=== PATIENT | female | born 1970 | race Caucasian/White ===

== ENCOUNTER 2016-07-05 13:11 | Emergency (ER) | payer OTHER ==
[~2016-07-05] VITALS: Ht 170.2 cm; Wt 80.0 kg
[2016-07-05 13:13] VITALS: BP 146/80; PULSE 78; RESP 20; TEMP 98; O2SAT 96
[2016-07-05] MEDS ORDERED: SODIUM CHLORIDE 0.9% FLUSH 5 ML FLUSH IVF PRN (14:15)
[2016-07-05] MEDS ORDERED: KETOROLAC TROMETHAMINE 30 MG/ML (IVP) VIAL IV PUSH ONE (14:15)
--- NOTE | 2016-07-05 14:20 | PD ---
HPI Chief Complaint: Chest Pain Time Seen by Provider: 13:48 Travel History International Travel<30 days: No Contact w/Intl Traveler<30days: No Traveled to known affect area: No History of Present Illness HPI Patient is a 45-year-old female presents with acute on chronic left upper quadrant abdominal pain. Patient states she's had a stent placed in her esophagus and she's been having pain in her epigastric and left flank pain for over a year. Patient states he got fairly severe last night and decided to come in and be seen. 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 Patient denies any nausea vomiting or shortness of breath. Patient states she's never had a heart attack before. PFSH Past Medical History Anemia: Yes Blood Disorders: No Depression: Yes Cancer: Yes (LUNG NODULES DX 2012) Cardiovascular Problems: Yes (HTN, ON NORVASC) Chemotherapy: Yes COPD: Yes Cerebrovascular Accident: Yes (TIA ) Diminished Hearing: No Endocrine: No Genitourinary: No Hepatitis: Yes (C) Hypertension: Yes Immune Disorder: No Neurologic: Yes (Migraines ) Psychiatric: Yes Reproductive: No Respiratory: Yes (COPD) Pneumonia: Yes Seizures: Yes ?: Not : 4 Para: 4 Past Surgical History Appendectomy: Yes Cholecystectomy: Yes Gynecologic Surgery: Yes (BLADDER LIFT) Hysterectomy: Yes Other Surgery: Yes (FACE SURGERY-BILAT) Social History Alcohol Use: No Tobacco Use: Yes (2 PPD ) Substance Use: Yes (MARIJUANA) Allergies-Medications (Allergen,Severity, Reaction): Coded Allergies: Morphine (Verified Allergy, Severe, swelling, 07/05/16) Sulfa (Verified Allergy, Severe, swelling, 07/05/16) Reported Meds & Prescriptions Reported Meds & Active Scripts Active No Active Prescriptions or Reported Medications Review of Systems Except as stated in HPI: all other systems reviewed are Neg Physical Exam Narrative GENERAL: Well-developed well-nourished appears older than stated age in no apparent distress. SKIN: Warm and dry. HEAD: Atraumatic. Normocephalic. EYES: Pupils equal and round. No scleral icterus. No injection or drainage. ENT: No nasal bleeding or discharge. Mucous membranes pink and moist. NECK: Trachea midline. No JVD. CARDIOVASCULAR: Regular rate and rhythm. No murmur appreciated. RESPIRATORY: No accessory muscle use. Clear to auscultation. Breath sounds equal bilaterally. GASTROINTESTINAL: Abdomen soft, non-tender, nondistended. Hepatic and splenic margins not palpable. MUSCULOSKELETAL: No obvious deformities. No clubbing. No cyanosis. No edema. NEUROLOGICAL: Awake and alert. No obvious cranial nerve deficits. Motor grossly within normal limits. Normal speech. PSYCHIATRIC: Appropriate mood and affect; insight and judgment normal. Data Data Last Documented VS Vital Signs Date Time Temp Pulse Resp B/P Pulse Ox O2 Delivery O2 Flow Rate FiO2 07/05/16 15:36 20 07/05/16 14:44 97 Room Air 07/05/16 14:44 56 138/77 07/05/16 13:13 98.0 Orders Complete Blood Count With Diff (07/05/16 14:02) Comprehensive Metabolic Panel (07/05/16 14:02) Lipase (07/05/16 14:02) Lactic Acid (07/05/16 14:02) Prothrombin Time / Inr (Pt) (07/05/16 14:02) Act Partial Throm Time (Ptt) (07/05/16 14:02) Iv Access Insert/Monitor (07/05/16 14:02) Ecg Monitoring (07/05/16 14:02) Oximetry (07/05/16 14:02) Sodium Chloride 0.9% Flush (Ns Flush) (07/05/16 14:15) Electrocardiogram (07/05/16 14:02) Troponin I (07/05/16 14:02) Ketorolac Inj (Toradol Inj) (07/05/16 14:15) Tramadol (Ultram) (07/05/16 15:45) Labs Laboratory Tests Test 07/05/16 14:10 White Blood Count 10.1 TH/MM3 Red Blood Count 4.58 MIL/MM3 Hemoglobin 13.4 GM/DL Hematocrit 39.9 % Mean Corpuscular Volume 87.1 FL Mean Corpuscular Hemoglobin 29.2 PG Mean Corpuscular Hemoglobin 33.6 % Concent Red Cell Distribution Width 14.3 % Platelet Count 278 TH/MM3 Mean Platelet Volume 10.2 FL Neutrophils (%) (Auto) 68.6 % Lymphocytes (%) (Auto) 22.7 % Monocytes (%) (Auto) 7.0 % Eosinophils (%) (Auto) 1.2 % Basophils (%) (Auto) 0.5 % Neutrophils # (Auto) 6.9 TH/MM3 Lymphocytes # (Auto) 2.3 TH/MM3 Monocytes # (Auto) 0.7 TH/MM3 Eosinophils # (Auto) 0.1 TH/MM3 Basophils # (Auto) 0.1 TH/MM3 CBC Comment DIFF FINAL Differential Comment Prothrombin Time 10.0 SEC Prothromb Time International 0.9 RATIO Ratio Activated Partial 28.9 SEC Thromboplast Time Sodium Level 139 MEQ/L Potassium Level 4.2 MEQ/L Chloride Level 102 MEQ/L Carbon Dioxide Level 28.8 MEQ/L Anion Gap 8 MEQ/L Blood Urea Nitrogen 11 MG/DL Creatinine 0.86 MG/DL Estimat Glomerular Filtration 71 ML/MIN Rate Random Glucose 122 MG/DL Lactic Acid Level 1.3 mmol/L Calcium Level 8.5 MG/DL Total Bilirubin 0.1 MG/DL Aspartate Amino Transf 18 U/L (AST/SGOT) Alanine Aminotransferase 20 U/L (ALT/SGPT) Alkaline Phosphatase 89 U/L Troponin I LESS THAN 0.02 NG/ML Total Protein 7.6 GM/DL Albumin 3.6 GM/DL Lipase 174 U/L [facility] Medical Decision Making Medical Screen Exam Complete: Yes Emergency Medical Condition: Yes Interpretation(s) EKG shows normal sinus rhythm normal axis normal R-wave progression. No concerning ST-T changes. Intervals within normal limits, this normal EKG. Differential Diagnosis Abdominal pain, ACS unlikely, [place] unlikely, smoking, esophageal dysphasia. Narrative Course Patient was roomed in emergency department initially given Toradol, she appears quite comfortable in no apparent distress. Labs reviewed and CBC with differential, bili within normal limits, CMP normal, EKG reassuring, troponin negative. Patient revisited says that she is still having significant pain, she is allergic to morphine and request Dilaudid by name. I discussed with her that she appears well and in no apparent distress and I be happy to had more pain medicine and offered her tramadol. She is agreeable. Discussed with her that if she is still having significant pain need to consider having a CAT scan of her abdomen though I think her abdomen exam at this point is benign and I think the risk of radiation outweigh any potential diagnostic benefits. Patient initially opts for CAT scan of her abdomen and tramadol was ordered. Shortly after this conversation the patient approached nursing and stated that she did not want a CAT scan of 1 to be discharged. Patient does not have a primary care physician wished follow-up. Discussed with her that the symptoms she is having are highly atypical for ACS but I would still recommend that she follows up with a primary care physician. She cannot be convinced to stay in the hospital for further workup at this time. She was calm and collective and polite but preferred to be discharged. She did verbalize understanding of risks of foregoing continue medical workup up to and including disability and permanent disability. She was given a referral to GI follow-up. I think her symptoms are much more GI and chronic in nature. She is stable for discharge at this time. Diagnosis Primary Impression: Abdominal pain Qualified Code: R10.84 - Generalized abdominal pain Referrals: Katherine Goldstein MD Scripts No Active Prescriptions or Reported Meds Disposition: DISCHARGE HOME Condition: Stable Iraj Carbajal MD Jul 05, 2016 14:20
[2016-07-05 14:35] LABS: AUTOMATED NEUTROPHIL # 6.9 TH/MM3 (1.8-7.7); BASOPHIL # 0.1 TH/MM3 (0-0.2); BASOPHIL % 0.5 % (0.0-2.0); EOSINOPHIL # 0.1 TH/MM3 (0-0.4); EOSINOPHIL % 1.2 % (0.0-4.0); HEMATOCRIT 39.9 % (35.0-46.0); HEMO FLAGS DIFF FINAL; LYMPH % 22.7 % (9.0-44.0); LYMPHOCYTE # 2.3 TH/MM3 (1.0-4.8); MEAN CELL VOLUME 87.1 FL (80.0-100.0); MEAN CORPUSCULAR HEMOGLOBIN 29.2 PG (27.0-34.0); MEAN CORPUSCULAR HGB CONC 33.6 % (32.0-36.0); NEUT % 68.6 % (16.0-70.0); PLATELET COUNT 278 TH/MM3 (150-450); RED BLOOD COUNT 4.58 MIL/MM3 (4.00-5.30); RED CELL DISTRIBUTION WIDTH 14.3 % (11.6-17.2); WHITE BLOOD COUNT 10.1 TH/MM3 (4.0-11.0)
[2016-07-05 14:41] LABS: APTT (PATIENT) 28.9 SEC (24.3-30.1); INTERNATIONAL NORMALIZED RATIO 0.9 RATIO
[2016-07-05 14:44] VITALS: BP 138/77; PULSE 56; RESP 22; O2SAT 97
[2016-07-05 14:56] LABS: ANION GAP 8 MEQ/L (5-15); AST (GOT) 18 U/L (15-37); BICARBONATE 28.8 MEQ/L (21.0-32.0); BLOOD UREA NITROGEN 11 MG/DL (7-18); CHLORIDE 102 MEQ/L (98-107); GLOMERULAR FILTRATION RATE 71 ML/MIN (>89); POTASSIUM 4.2 MEQ/L (3.5-5.1); SODIUM (NA) 139 MEQ/L (136-145)
[2016-07-05 15:05] LABS: ALKALINE PHOSPHATASE 89 U/L (45-117); ALT (GPT) 20 U/L (10-53)
[2016-07-05 15:16] LABS: TOTAL BILIRUBIN ADULT 0.1 MG/DL (0.2-1.0)
[2016-07-05 15:36] VITALS: RESP 20
[2016-07-05] MEDS ORDERED: traMADol HCL 50 MG TAB PO ONE (15:45)
--- NOTE | 2016-07-05 16:28 | EKG ---
Date Performed: 07/05/2016 Time Performed: 14:41:59 PTAGE: 45 years EKG: SINUS BRADYCARDIA BORDERLINE ECG PREVIOUS TRACING : 02/05/2016 15.58 No significant change from previous tracing noted. DOCTOR: Kash Galvez Interpretating Date/Time 07/05/2016 16:27:03
[2016-09-01] MEDS ORDERED: TRAM50TA PO (14:53)
== END 2016-07-05 16:54 | disposition home or self-care (01) ==
LOC: NEPE 13:11
DX: R10.84 Generalized abdominal pain (principal); G89.29 Other chronic pain; R94.31 Abnormal electrocardiogram [ECG] [EKG]; I10 Essential (primary) hypertension; F17.200 Nicotine dependence, unspecified, uncomplicated; Z86.2 Personal history of diseases of the blood and blood-forming organs and certain disorders involving the immune mechanism; Z86.59 Personal history of other mental and behavioral disorders; Z87.09 Personal history of other diseases of the respiratory system; Z86.79 Personal history of other diseases of the circulatory system; Z86.73 Personal history of transient ischemic attack (TIA), and cerebral infarction without residual deficits; Z86.19 Personal history of other infectious and parasitic diseases; Z86.69 Personal history of other diseases of the nervous system and sense organs
CPT/HCPCS: 80053; 83605; 83690; 84484; 85025; 85610; 85730; 93005; 96374; 99284; J1885

== ENCOUNTER 2016-08-24 07:39 | Emergency (ER) | payer OTHER ==
[~2016-08-24] VITALS: Ht 170.2 cm; Wt 75.0 kg
[2016-08-24 07:41] VITALS: BP 206/98; PULSE 77; RESP 17; TEMP 97.8; O2SAT 99
[2016-08-24 07:55] VITALS: BP 154/85; PULSE 73; RESP 16; TEMP 98.6; O2SAT 96
[2016-08-24] MEDS ORDERED: SODIUM CHLOR 0.9% 1000 ML INJ 1,000 ML IV SCH (07:56)
[2016-08-24] MEDS ORDERED: DICL75TA PO (07:58)
[2016-08-24] MEDS ORDERED: ROBA750T PO (07:58)
[2016-08-24] MEDS ORDERED: SODIUM CHLORIDE 0.9% FLUSH 10 ML FLUSH IV FLUSH PRN (08:00)
[2016-08-24] MEDS ORDERED: ONDANSETRON HCL 4 MG/2 ML VIAL IVP ONE (08:00)
[2016-08-24] MEDS ORDERED: HYDROmorphone HCL PF 1 MG/ML VIAL IVS ONE (08:00)
[2016-08-24] MEDS ORDERED: KETOROLAC TROMETHAMINE 30 MG/ML (IVP) VIAL IVP ONE (08:00)
[2016-08-24 08:25] LABS: AUTOMATED NEUTROPHIL # 7.7 TH/MM3 (1.8-7.7); BASOPHIL # 0.1 TH/MM3 (0-0.2); BASOPHIL % 0.7 % (0.0-2.0); EOSINOPHIL # 0.2 TH/MM3 (0-0.4); EOSINOPHIL % 2.2 % (0.0-4.0); HEMO FLAGS DIFF FINAL; LYMPHOCYTE # 1.9 TH/MM3 (1.0-4.8); MEAN CELL VOLUME 87.3 FL (80.0-100.0); MEAN CORPUSCULAR HEMOGLOBIN 29.7 PG (27.0-34.0); MONO % 5.1 % (0.0-8.0); PLATELET COUNT 258 TH/MM3 (150-450); RED CELL DISTRIBUTION WIDTH 14.2 % (11.6-17.2); WHITE BLOOD COUNT 10.4 TH/MM3 (4.0-11.0)
--- NOTE | 2016-08-24 08:35 | PD ---
HPI Chief Complaint: Abdominal Pain Time Seen by Provider: 07:50 Travel History International Travel<30 days: No Contact w/Intl Traveler<30days: No Traveled to known affect area: No History of Present Illness HPI 45-year-old female arrives to the ER with sudden onset left lower quadrant pain. It started at 6:30 AM. It woke her from sleep. The pain radiates from the left lateral abdomen into the suprapubic distribution on the left side. Coughing worsens the pain. She states the pain is severe. She has had nausea but no vomiting or fever. No vaginal discharge or bleeding. No dysuria or hematuria. No history kidney stone or diverticulitis. Last menstruation was 20 years ago. No diarrhea. Multiple prior surgeries have been performed including a left ankle surgery, cholecystectomy and multiple surgeries of the cervix due to dysplasia. She was on chemotherapy for cervical disease > 20 years prior. PFSH Past Medical History Anemia: Yes Blood Disorders: No Depression: Yes Cancer: Yes (LUNG NODULES DX 2012) Cardiovascular Problems: Yes (HTN, ON NORVASC) Chemotherapy: Yes COPD: Yes Cerebrovascular Accident: Yes (TIA ) Diminished Hearing: No Endocrine: No Genitourinary: No Hepatitis: Yes (C) Hypertension: Yes Immune Disorder: No Neurologic: Yes (Migraines ) Psychiatric: Yes Reproductive: No Respiratory: Yes (COPD) Pneumonia: Yes Radiation Therapy: Yes Seizures: Yes Tetanus Vaccination: Unknown Influenza Vaccination: No ?: Not Menopausal: Yes : 4 Para: 4 Past Surgical History Appendectomy: Yes Cholecystectomy: Yes Gynecologic Surgery: Yes (BLADDER LIFT) Hysterectomy: Yes Other Surgery: Yes (FACE SURGERY-BILAT) Social History Alcohol Use: No Tobacco Use: Yes (2 PPD ) Substance Use: Yes (MARIJUANA- LAST USE 3 MONTHS AGO ) Allergies-Medications (Allergen,Severity, Reaction): Coded Allergies: Morphine (Verified Allergy, Severe, swelling, 08/24/16) Sulfa (Verified Allergy, Severe, swelling, 08/24/16) Reported Meds & Prescriptions Reported Meds & Active Scripts Active Lortab (Hydrocodone-Acetaminophen) 5-325 Mg Tab 1-2 Tab PO Q6H PRN Reported Diclofenac Sodium DR (Diclofenac Sodium) 75 Mg Tabdr 75 Mg PO DAILY Robaxin (Methocarbamol) 750 Mg Tab 750 Mg PO QID PRN Review of Systems Except as stated in HPI: all other systems reviewed are Neg General / Constitutional: No: Fever Gastrointestinal: Positive: Nausea, Abdominal Pain, No: Vomiting, Diarrhea Physical Exam Narrative GENERAL: 45 yo F, mild distress, WNWD GENITOURINARY: Minimal thick white discharge present. No adnexal tenderness on the right side. Possible adnexal mass in the left side. SKIN: Warm and dry. HEAD: Atraumatic. Normocephalic. EYES: Pupils equal and round. No scleral icterus. No injection or drainage. ENT: No nasal bleeding or discharge. Mucous membranes pink and moist. NECK: Trachea midline. No JVD. CARDIOVASCULAR: Regular rate and rhythm. RESPIRATORY: No accessory muscle use. Clear to auscultation. Breath sounds equal bilaterally. GASTROINTESTINAL: Abdomen soft, non-tender, nondistended. Hepatic and splenic margins not palpable. MUSCULOSKELETAL: Extremities without clubbing, cyanosis, or edema. No obvious deformities. NEUROLOGICAL: Awake and alert. No obvious cranial nerve deficits. Motor grossly within normal limits. Five out of 5 muscle strength in the arms and legs. Normal speech. PSYCHIATRIC: Appropriate mood and affect; insight and judgment normal. Data Data Last Documented VS Vital Signs Date Time Temp Pulse Resp B/P Pulse Ox O2 Delivery O2 Flow Rate FiO2 08/24/16 13:57 72 18 150/95 99 08/24/16 07:55 98.6 Room Air Vital signs reviewed Orders Complete Blood Count With Diff (08/24/16 07:56) Comprehensive Metabolic Panel (08/24/16 07:56) Lipase (08/24/16 07:56) Urinalysis - C+S If Indicated (08/24/16 07:56) Ct Abd/Pel W/O Iv Contrast (08/24/16 07:56) Iv Access Insert/Monitor (08/24/16 07:56) Ecg Monitoring (08/24/16 07:56) Oximetry (08/24/16 07:56) Ondansetron Inj (Zofran Inj) (08/24/16 08:00) Sodium Chlor 0.9% 1000 Ml Inj (Ns 1000 M (08/24/16 07:56) Sodium Chloride 0.9% Flush (Ns Flush) (08/24/16 08:00) Ketorolac Inj (Toradol Inj) (08/24/16 08:00) Hydromorphone Pf Inj (Dilaudid Pf Inj) (08/24/16 08:00) Hydromorphone Pf Inj (Dilaudid Pf Inj) (08/24/16 09:00) Us Pelvis Comp W Dop Transvag (08/24/16 ) Hydromorphone Pf Inj (Dilaudid Pf Inj) (08/24/16 11:30) Gc And Chlamydia Pcr (08/24/16 12:33) Wet Prep Profile (08/24/16 12:33) Labs Laboratory Tests Test 08/24/16 08/24/16 08/24/16 08:05 08:45 12:35 White Blood Count 10.4 TH/MM3 Red Blood Count 4.70 MIL/MM3 Hemoglobin 13.9 GM/DL Hematocrit 41.0 % Mean Corpuscular Volume 87.3 FL Mean Corpuscular Hemoglobin 29.7 PG Mean Corpuscular Hemoglobin 34.0 % Concent Red Cell Distribution Width 14.2 % Platelet Count 258 TH/MM3 Mean Platelet Volume 9.8 FL Neutrophils (%) (Auto) 74.0 % Lymphocytes (%) (Auto) 18.0 % Monocytes (%) (Auto) 5.1 % Eosinophils (%) (Auto) 2.2 % Basophils (%) (Auto) 0.7 % Neutrophils # (Auto) 7.7 TH/MM3 Lymphocytes # (Auto) 1.9 TH/MM3 Monocytes # (Auto) 0.5 TH/MM3 Eosinophils # (Auto) 0.2 TH/MM3 Basophils # (Auto) 0.1 TH/MM3 CBC Comment DIFF FINAL Differential Comment Sodium Level 139 MEQ/L Potassium Level 4.2 MEQ/L Chloride Level 105 MEQ/L Carbon Dioxide Level 26.1 MEQ/L Anion Gap 8 MEQ/L Blood Urea Nitrogen 9 MG/DL Creatinine 0.81 MG/DL Estimat Glomerular Filtration 76 ML/MIN Rate Random Glucose 120 MG/DL Calcium Level 9.1 MG/DL Total Bilirubin 0.3 MG/DL Aspartate Amino Transf 16 U/L (AST/SGOT) Alanine Aminotransferase 22 U/L (ALT/SGPT) Alkaline Phosphatase 71 U/L Total Protein 7.6 GM/DL Albumin 3.7 GM/DL Lipase 156 U/L Urine Color LIGHT-YELLOW Urine Turbidity HAZY Urine pH 7.0 Urine Specific [place] 1.010 Urine Protein NEG mg/dL Urine Glucose (UA) NEG mg/dL Urine Ketones NEG mg/dL Urine Occult Blood NEG Urine Nitrite NEG Urine Bilirubin NEG Urine Urobilinogen LESS THAN 2.0 MG/DL Urine Leukocyte Esterase NEG Urine RBC 1 /hpf Urine WBC 3 /hpf Urine Squamous Epithelial 18 /hpf Cells Urine Renal Epithelial Cells <1 /hpf Urine Bacteria RARE /hpf Urine Mucus FEW /lpf Microscopic Urinalysis Comment CULT NOT INDICATED Clue Cells (Wet Prep) PRESENT Vaginal Trichomonas (Wet Prep) NONE SEEN Vaginal Yeast (Wet Prep) NONE SEEN MDM Medical Decision Making Medical Screen Exam Complete: Yes Emergency Medical Condition: Yes Medical Record Reviewed: Yes Differential Diagnosis Constipation, Gastritis, Acute Cholecystitis, Biliary Colic, Pancreatitis, LUDWIG , Hepatitis, Bowel Obstruction, Cystitis, Mesenteric Ischemia, AAA, Appendicitis , Renal Stone/Hydronephrosis, GERD, perforated viscous Narrative Course CBC & BMP Diagram 08/24/16 08:05 LFTs normal Lipase normal Urinalysis: less consistent with UTI Last 24 hours Impressions Abdomen/Pelvis CT 08/24/16 0756 Signed Impressions: Service Date/Time: Wednesday, August 24, 2016 09:23 - CONCLUSION: Left adnexa soft tissue density with tubular structure possibly ovarian and/or related to the patient's fallopian tube or unopacified loop of bowel, otherwise unremarkable. Bridget Huang MD Abdomen/Pelvis/Transvag US 08/24/16 0000 Signed Impressions: Service Date/Time: Wednesday, August 24, 2016 10:48 - CONCLUSION: Left ovarian cyst with a tubular structure adjacent to it corresponding to the findings on the patient's CT examination most likely benign, however the exact etiology is not certain. The patient has had prior hysterectomy and it would be unusual for this structure to be a dilated fallopian tube, however this possibility is not excluded. In any regard the findings are most likely benign and could be followed based on clinical grounds and may be with repeat pelvic MRI or CT examination with contrast in 6 months. Bridget Huang MD The patient is resting comfortably and feels better, is alert and in no distress. The patients results and examination findings were discussed. The repeat examination is unremarkable and benign. The history, exam, diagnostic testing, and current condition do not suggest any significant pathology to warrant further testing, continued ED treatment, admission, or surgical evaluation at this point. The vital signs have been stable. The patient does not have uncontrollable pain, intractable vomiting, or other significant symptoms. The patient's condition is stable and appropriate for discharge. The patient will pursue further outpatient evaluation with a primary care physician or other designated or consulting physician as indicated in the discharge instructions. The patient expressed understanding and was agreeable with this plan. Patient has agreed to obtain repeat imaging in 6 months. Diagnosis Primary Impression: Hydrosalpinx Additional Impressions: LLQ pain Ovarian cyst Qualified Code: N83.202 - Cyst of left ovary Referrals: David Painting MD 2 days Additional Instructions: You have a choice when it comes to health care, and we are glad that you chose [facility]. Hopefully, we have met your expectations on today's visit. You are welcome to return to [facility] at any time, as we are committed to meeting the health care needs of our community. Med/Other Pt SpecificInfo: Prescription(s) given Scripts Hydrocodone-Acetaminophen (Lortab)5-325 Mg Tab1-2 Tab PO Q6H PRN (PAIN SCALE 6 TO 10) #20 TAB Ref 0 Prov:Yuan Velez MD 08/24/16 Disposition: DISCHARGE HOME Condition: Stable Yuan Velez MD Aug 24, 2016 08:35
[2016-08-24 08:42] LABS: ALT (GPT) 22 U/L (10-53); ANION GAP 8 MEQ/L (5-15); AST (GOT) 16 U/L (15-37); BICARBONATE 26.1 MEQ/L (21.0-32.0); BLOOD UREA NITROGEN 9 MG/DL (7-18); CHLORIDE 105 MEQ/L (98-107); GLOMERULAR FILTRATION RATE 76 ML/MIN (>89); POTASSIUM 4.2 MEQ/L (3.5-5.1); SODIUM (NA) 139 MEQ/L (136-145)
[2016-08-24 08:44] LABS: ALKALINE PHOSPHATASE 71 U/L (45-117); TOTAL BILIRUBIN ADULT 0.3 MG/DL (0.2-1.0)
[2016-08-24] MEDS ORDERED: HYDROmorphone HCL PF 1 MG/ML VIAL IV PUSH ONE ×2 (09:00→11:30)
[2016-08-24 09:07] LABS: BACTERIA, URINE RARE /hpf; BLOOD, URINE NEG (NEG); GLUCOSE,URINE NEG (NEG); KETONE, URINE NEG (NEG); MUCUS URINE FEW /lpf (OCC); NITRITE,URINE NEG (NEG); RENAL EPITHELIAL CELLS <1 /hpf; SQUAMOUS EPITHELIAL CELL URINE 18 /hpf (0-5); URINE COLOR LIGHT-YELLOW (YELLW/STRAW)
[2016-08-24 09:08] LABS: COMMENT (UR) CULT NOT INDICATED; CULTURE IF INDICATED CULT NOT INDICATED
[2016-08-24 09:42] VITALS: BP 151/107; PULSE 63; RESP 19; O2SAT 95
--- NOTE | 2016-08-24 10:11 | RADRPT ---
EXAM DATE/TIME: 08/24/2016 09:23 [facility] COMPARISON: No previous studies available for comparison. INDICATIONS : Left lower abdomen pain today. ORAL CONTRAST: No oral contrast ingested. RADIATION DOSE: 7.31 CTDIvol (mGy) MEDICAL HISTORY : Carcinoma, lung. Chronic obstructive pulmonary disease. SURGICAL HISTORY : bladder lift ENCOUNTER: Initial ACUITY: 1 day PAIN SCALE: 8/10 LOCATION: Left lower quadrant TECHNIQUE: Volumetric scanning of the abdomen and pelvis was performed. Using automated exposure control and ad justment of the mA and/or kV according to patient size, radiation dose was kept as low as reasonably achievable to obtain optimal diagnostic quality images. FINDINGS: CT Abdomen: The liver, spleen, pancreas, kidneys, adrenals are unremarkable. There is no evidence for any appreciable pathological adenopathy, free fluid, or bowel obstruction. There is evidence for pr ior cholecystectomy. Chronic vascular calcifications are present involving the aorta, iliac arteries without any significant stenosis or aneurysmal dilatations for technique. There is no ureteral stone and there is no hydronephrosis on either side. CT pelvis: There is a tubular structure in the left adnexa difficult to ascertain whether this is an unopacified loop of bowel or is in the patient's left ovary measuring 4.8 x 1.6 cm in size and adjace nt to it there is soft tissue density measuring 4 cm in size probably patient's ovary. Possibility of ovarian cysts and or dilatation of the fallopian tube should be entertained versus unopacified loops of bowel. There are numerous diverticuli mainly in the sigmoid colon without definite signs of diver ticulitis. CONCLUSION: Left adnexa soft tissue density with tubular structure possibly ovarian and/or relate d to the patient's fallopian tube or unopacified loop of bowel, otherwise unremarkable. Bridget Huang MD on August 24, 2016 at 10:04 Board Certified Radiologist. This report was verified electronically.
--- NOTE | 2016-08-24 11:48 | RADRPT ---
EXAM DATE/TIME: 08/24/2016 10:48 [facility] COMPARISON: CT ABDOMEN & PELVIS W/O CONTRAST, August 24, 2016, 9:23. INDICATIONS : Left pelvic pain, mass seen on Cat Scan. MEDICAL HISTORY : Carcinoma, lung. Hepatitis C. Hypertension. Chemotherapy. Radiation. COPD. SURGICAL HISTORY : Appendectomy. Cholecystectomy. Total knee replacement, left. Bladder lift. ENCOUNTER: Initial ACUITY: 1 day PAIN SCORE: 7/10 LOCATION: Bilateral pelvis MEASUREMENTS: UTERUS: Surgically absent RIGHT OVARY: 2.6 x 1.6 x 1.7 cm LEFT OVARY: 2.8 x 2.5 x 2.3 cm FINDINGS: The uterus is absent surgically and the right ovary appears intact. There is an approximate 1.[address] in the left ovary and adjacent to it is a tubular structure measuring 7.0 x 1.7 x 1.8 cm in size c orresponding to the tubular structure seen on the patient's CT examination. There is a tiny amount of fluid in the cul-de-sac. CONCLUSION: Left ovarian cyst with a tubular structure adjacent to it corresponding to the findings on the patien t's CT examination most likely benign, however the exact etiology is not certain. The patient has had prior hysterectomy and it would be unusual for this structure to be a dilated fallopian tube, howeve r this possibility is not excluded. In any regard the findings are most likely benign and could be fo llowed based on clinical grounds and may be with repeat pelvic MRI or CT examination with contrast in 6 months. Bridget Huang MD on August 24, 2016 at 11:41 Board Certified Radiologist. This report was verified electronically.
[2016-08-24] MEDS ORDERED: HYDR-3533 PO (13:05)
[2016-08-24 13:57] VITALS: BP 150/95
[2016-08-24 16:21] LABS: CHLAMYDIA PCR NOT DETECTED (NOT DETECT); NEISSERIA PCR NOT DETECTED (NOT DETECT)
[2016-09-01] MEDS ORDERED: TRAM50TA PO (14:53)
== END 2016-08-24 14:02 | disposition home or self-care (01) ==
LOC: NEPC 07:39
DX: N70.11 Chronic salpingitis (principal); N83.202 Unspecified ovarian cyst, left side; I10 Essential (primary) hypertension; J44.9 Chronic obstructive pulmonary disease, unspecified; Z86.73 Personal history of transient ischemic attack (TIA), and cerebral infarction without residual deficits; F17.210 Nicotine dependence, cigarettes, uncomplicated; F12.10 Cannabis abuse, uncomplicated
CPT/HCPCS: 74176; 76830; 76856; 80053; 81001; 83690; 85025; 87210; 87491; 87591; 93975; 96361; 96374; 96375; 96376; 99284; J1170; J1885; J2405; J7030

== ENCOUNTER 2016-08-28 08:49 | Emergency (ER) | payer OTHER ==
[~2016-08-28] VITALS: Ht 170.2 cm; Wt 72.5 kg
[~2016-08-28 08:49] MED LIST: DICL75TA PO; HYDR-3533 PO; ROBA750T PO
[2016-08-28 08:53] VITALS: BP 194/104; PULSE 74; RESP 18; TEMP 98.2; O2SAT 98
[2016-08-28 09:14] VITALS: BP 180/79; PULSE 62; RESP 18; TEMP 98.2; O2SAT 98
--- NOTE | 2016-08-28 09:19 | PD ---
HPI . Lower abdominal pain Chief Complaint: Medication Refill Request Time Seen by Provider: 09:17 Travel History International Travel<30 days: No Contact w/Intl Traveler<30days: No Traveled to known affect area: No History of Present Illness HPI Patient is here requesting a refill of Lortab. She was seen here 08/24 and diagnosed with a benign left ovarian cyst. She was instructed to follow-up with her primary care physician. She states that she cannot get an appointment until 09/01. She comes in requesting refill of her Lortab until she can get into see a primary physician. Patient reports continued, severe left suprapubic pain. Onset was 08/24. PFSH Past Medical History Anemia: Yes Blood Disorders: No Depression: Yes Cancer: Yes (LUNG NODULES DX 2012) Cardiovascular Problems: Yes (HTN, ON NORVASC) Chemotherapy: Yes COPD: Yes Cerebrovascular Accident: Yes (TIA ) Diminished Hearing: No Endocrine: No Genitourinary: No Hepatitis: Yes (C) Hypertension: Yes Immune Disorder: No Neurologic: Yes (Migraines ) Psychiatric: Yes Reproductive: No Respiratory: Yes (COPD) Pneumonia: Yes Radiation Therapy: Yes Seizures: Yes ?: Not Menopausal: Yes : 4 Para: 4 Past Surgical History Appendectomy: Yes Cholecystectomy: Yes Gynecologic Surgery: Yes (BLADDER LIFT) Hysterectomy: Yes Other Surgery: Yes (FACE SURGERY-BILAT) Social History Alcohol Use: No Tobacco Use: Yes (2 PPD ) Substance Use: Yes (MARIJUANA- LAST USE 3 MONTHS AGO ) Allergies-Medications (Allergen,Severity, Reaction): Coded Allergies: Morphine (Verified Allergy, Severe, swelling, 08/28/16) Sulfa (Verified Allergy, Severe, swelling, 08/28/16) Reported Meds & Prescriptions Reported Meds & Active Scripts Active Lortab (Hydrocodone-Acetaminophen) 5-325 Mg Tab 1-2 Tab PO Q6H PRN Reported Diclofenac Sodium DR (Diclofenac Sodium) 75 Mg Tabdr 75 Mg PO DAILY Robaxin (Methocarbamol) 750 Mg Tab 750 Mg PO QID PRN Review of Systems Except as stated in HPI: all other systems reviewed are Neg Gastrointestinal: Positive: Abdominal Pain Physical Exam Narrative GENERAL: Awake and alert and in no acute distress. SKIN: Warm and dry. HEAD: Atraumatic. Normocephalic. EYES: Pupils equal and round. NECK: Trachea midline. CARDIOVASCULAR: Regular rate and rhythm. RESPIRATORY: No accessory muscle use. ABDOMEN: Soft and nontender throughout with no guarding or rebound. MUSCULOSKELETAL: No obvious deformities. No edema. NEUROLOGICAL: Awake and alert. No obvious cranial nerve deficits. Motor grossly within normal limits. Normal speech. PSYCHIATRIC: Appropriate mood and affect; insight and judgment normal. Data Data Last Documented VS Vital Signs Date Time Temp Pulse Resp B/P Pulse Ox O2 Delivery O2 Flow Rate FiO2 08/28/16 09:14 98.2 62 18 180/79 98 MDM Medical Decision Making Medical Screen Exam Complete: Yes Emergency Medical Condition: Yes Medical Record Reviewed: Yes (records reviewed from 08/24. She had a CT of her abdomen showed a mass in the left lower quadrant. It was most likely ovarian. She had a follow-up ultrasound which confirmed a left ovarian cyst which was felt to be benign in nature.) Differential Diagnosis Differential diagnosis of abdominal pain includes but is not limited to gastritis, pancreatitis, hepatitis, gastroenteritis, gallbladder disease, constipation, urinary retention, UTI, peptic ulcer disease, diverticulitis or appendicitis Narrative Course Patient presents with ongoing left suprapubic pain. She is requesting a refill of hydrocodone to get her through until September 01 when she can see [employer]. I have explained to the patient that we do not refill hydrocodone in the emergency department. Diagnosis Primary Impression: Abdominal pain Qualified Code: R10.30 - Lower abdominal pain Disposition: DISCHARGE HOME Condition: Stable Julita Anthony MD Aug 28, 2016 09:19
[2016-09-01] MEDS ORDERED: TRAM50TA PO (14:53)
== END 2016-08-28 09:35 | disposition home or self-care (01) ==
LOC: NEPD 08:49
DX: R10.30 Lower abdominal pain, unspecified (principal); Z76.0 Encounter for issue of repeat prescription; I10 Essential (primary) hypertension; F17.210 Nicotine dependence, cigarettes, uncomplicated
CPT/HCPCS: 99281